=== PATIENT | female | born 1965 | race Caucasian/White ===

== ENCOUNTER 2018-11-05 14:22 | Emergency (ER) | payer MEDICARE, MEDICAID ==
[2018-11-05 14:48] VITALS: RESP 18; TEMP 97.5
[2018-11-05 16:30] VITALS: BP 122/83; PULSE 82; O2SAT 98
== END 2018-11-05 15:18 | disposition home or self-care (01) | DRG 392 ==
LOC: ED 14:22
DX: K59.00 Constipation, unspecified (principal); E03.9 Hypothyroidism, unspecified
CPT/HCPCS: 74019; 99282; 99283

== ENCOUNTER 2018-11-19 13:28 | Emergency (ER) | payer MEDICARE, MEDICAID ==
[2018-11-19 14:26] LABS: BASOPHILS % (AUTO) 1 % (0-3); EOSINOPHILS % (AUTO) 1 % (0-9); HEMATOCRIT 34 % (35-47); HEMOGLOBIN 10.7 gm/dl (12.0-15.5); LYMPHOCYTES % (AUTO) 23.1 % (10-50); MEAN CORPUSCULAR HEMOGLOBIN 29.8 pg (27.0-32.0); MEAN CORPUSCULAR HGB CONC 31.5 gm/dl (32.0-36.0); MEAN CORPUSCULAR VOLUME 95 fL (81-99); MONOCYTES % (AUTO) 13.2 % (0-12); NEUTROPHILS % (AUTO) 61.6 % (37-80)
[2018-11-19 14:43] LABS: ALBUMIN 2.8 gm/dl (3.4-5.0); ALKALINE PHOSPHATASE 57 IU/L (46-116); ALT 51 IU/L (14-63); AST 32 IU/L (15-37); BILIRUBIN,TOTAL 0.2 mg/dl (0.2-1.0); BLOOD UREA NITROGEN 11 mg/dl (7-18); CALCIUM 8.2 mg/dl (8.5-10.1); CARBON DIOXIDE 37.9 mEq/L (21-32); CHLORIDE 86 mMol/L (98-107); GLUCOSE 111 mg/dl (74-106); POTASSIUM 4.8 mMol/L (3.5-5.1); TOTAL PROTEIN 6.7 gm/dl (6.4-8.2); TROP I < 0.017 ng/ml (0.000-0.056)
[2018-11-19 14:59] LABS: SODIUM 122 mMol/L (136-145)
[2018-11-19 15:20] LABS: ABG PH 7.37 (7.35-7.45)
[2018-11-19 15:27] LABS: APPEARANCE,URINE Clear; BILIRUBIN,URINE NEGATIVE (NEGATIVE); COLOR,URINE Yellow; GLUCOSE, URINE (UA) NEGATIVE (NEGATIVE); KETONES,URINE NEGATIVE (NEGATIVE); LEUKOCYTE ESTERASE ,URINE TRACE (NEGATIVE); NITRATE,URINE NEGATIVE (NEGATIVE); OCCULT BLOOD,URINE NEGATIVE (NEG-TRACE); PH,URINE 6.5; UROBILINOGEN,URINE 0.2 (0.2-1.0 EU)
[2018-11-19 15:44] LABS: BACTERIA 1+ (< 1+); CRYSTALS NEGATIVE (0-3 AVE/HPF); EPITHELIAL CELLS 0-3 (SQUAMOUS); RBC,URINE 0-1 (0-3AV/HPF)
[2018-11-19] MEDS ORDERED: SODIUM CHLORIDE 0.9% 1000ML 1,000 ML IV SCH (15:45)
[2018-11-19] MEDS ORDERED: ALBUTEROL/IPRATROPIUM 1 VIAL SOL INH ONE (16:00)
[2018-11-19] MEDS ORDERED: ALBUTEROL/IPRATROPIUM 1 VIAL SOL ONE (16:04)
[2018-11-19] MEDS ORDERED: ACETAMINOPHEN 500 MG 500 MG TAB PO ONE (16:16)
[2018-11-19] MEDS ORDERED: ACETAMINOPHEN 500 MG 500 MG TAB ONE (16:20)
[2018-11-19] MEDS ORDERED: ONDANSETRON HCL 4 MG/2 ML SOL IV ONE (17:17)
[2018-11-19] MEDS ORDERED: ONDANSETRON HCL 4 MG/2 ML SOL ONE (17:21)
[2018-11-19 17:53] VITALS: TEMP 97.8
[2018-11-19 21:20] VITALS: RESP 18
[2018-11-19 21:21] VITALS: O2SAT 96
[2018-11-19 21:22] VITALS: BP 108/64; PULSE 68
== END 2018-11-19 18:15 | disposition home or self-care (01) | DRG 191 ==
LOC: ED 13:28
DX: J44.9 Chronic obstructive pulmonary disease, unspecified (principal); E87.1 Hypo-osmolality and hyponatremia; R05 Cough; R06.02 Shortness of breath
CPT/HCPCS: 36415; 36600; 71046; 80053; 81001; 82803; 84484; 85025; 87088; 93005; 96365; 96374; 99283; 99285; J2405

== ENCOUNTER 2018-12-22 08:51 | Emergency (ER) | payer MEDICARE, MEDICAID ==
[2018-12-22 09:20] LABS: LACTIC ACID < 0.8 mMol/L (0.0-2.0)
[2018-12-22 09:23] LABS: ABG PH 7.06 (7.35-7.45)
[2018-12-22 09:24] LABS: ABG PCO2 > 139 mmHg (35-45); ABG PO2 77 mmHg (80-100)
[2018-12-22] MEDS ORDERED: SUCCINYLCHOLINE CHLORIDE 20 MG/ML SOL IV ONE (09:24)
[2018-12-22] MEDS ORDERED: ETOMIDATE 2 MG/ML SOL IV ONE ×3 (09:24→09:44)
[2018-12-22 09:33] LABS: HEMATOCRIT 34 % (35-47); HEMOGLOBIN 10.3 gm/dl (12.0-15.5); MEAN CORPUSCULAR HEMOGLOBIN 29.7 pg (27.0-32.0); MEAN CORPUSCULAR HGB CONC 29.8 gm/dl (32.0-36.0)
[2018-12-22 09:34] LABS: MEAN CORPUSCULAR VOLUME 100 fL (81-99)
[2018-12-22] MEDS ORDERED: ROCURONIUM BROMIDE 10 MG/ML SOL IV ONE ×2 (09:34→09:45)
[2018-12-22 09:40] LABS: ALBUMIN 3.3 gm/dl (3.4-5.0); ALKALINE PHOSPHATASE 92 IU/L (46-116); ALT 22 IU/L (14-63); AST 21 IU/L (15-37); BILIRUBIN,TOTAL 0.1 mg/dl (0.2-1.0); BLOOD UREA NITROGEN 30 mg/dl (7-18); CARBON DIOXIDE 40.6 mEq/L (21-32); CHLORIDE 95 mMol/L (98-107); CREATININE 0.76 mg/dl (0.60-1.00); GLUCOSE 180 mg/dl (74-106); SODIUM 132 mMol/L (136-145); TOTAL PROTEIN 7.5 gm/dl (6.4-8.2); TROP I < 0.017 ng/ml (0.000-0.056)
[2018-12-22 09:41] LABS: POTASSIUM 6.7 mMol/L (3.5-5.1)
[2018-12-22] MEDS ORDERED: LACTATED RINGERS 1,000 ML IV ONE (09:42)
[2018-12-22] MEDS ORDERED: SODIUM CHLORIDE 0.9% 1000ML 1,000 ML IV ONE (09:45)
[2018-12-22 09:55] LABS: NEUTROPHILS % (MANUAL) 74 % (37-80)
[2018-12-22 09:56] LABS: BAND NEUTROPHILS % (MANUAL) 2 %; BASOPHILS % (MANUAL) 0 % (0-3); EOSINOPHILS % (MANUAL) 0 % (0-9); LYMPHOCYTES % (MANUAL) 14 % (10-50); MONOCYTES % (MANUAL) 10 % (0-12); NORMAL RBCS PRESENT
[2018-12-22] MEDS ORDERED: ATROPINE 0.1 MG/ML SOL ONE (09:58)
[2018-12-22] MEDS ORDERED: ATROPINE 0.1 MG/ML SOL IV ONE (10:00)
[2018-12-22] MEDS ORDERED: CALCIUM GLUCONATE 10% 1,000 MG in SODIUM CHLORIDE 0.9% 100 ML 100 ML IV ONE (10:01)
[2018-12-22] MEDS ORDERED: CALCIUM GLUCONATE 10% 100 MG/ML SOL IV ONE (10:06)
[2018-12-22] MEDS ORDERED: ALBUTEROL/IPRATROPIUM 1 VIAL SOL INH ONE (10:15)
[2018-12-22] MEDS ORDERED: ALBUTEROL/IPRATROPIUM 1 VIAL SOL ONE (10:15)
[2018-12-22] MEDS ORDERED: DEXTROSE 50% 1 VIAL SOL IV ONE ×2 (10:19)
[2018-12-22] MEDS ORDERED: INSULIN HUMAN REGULAR 100 U/ML SOL IV ONE (10:19)
[2018-12-22] MEDS ORDERED: INSULIN HUMAN REGULAR 100 U/ML SOL ONE (10:20)
[2018-12-22 10:27] VITALS: RESP 16
[2018-12-22 10:43] VITALS: PULSE 48; O2SAT 96
[2018-12-22] MEDS ORDERED: SODIUM CHLORIDE 0.9% FLUSH 10 ML SOL IV PRN (10:46)
[2018-12-22 10:51] LABS: APPEARANCE,URINE Clear; BILIRUBIN,URINE NEGATIVE (NEGATIVE); COLOR,URINE Yellow; GLUCOSE, URINE (UA) NEGATIVE (NEGATIVE); KETONES,URINE NEGATIVE (NEGATIVE); LEUKOCYTE ESTERASE ,URINE NEGATIVE (NEGATIVE); NITRATE,URINE NEGATIVE (NEGATIVE); OCCULT BLOOD,URINE NEGATIVE (NEG-TRACE); UROBILINOGEN,URINE 0.2 (0.2-1.0 EU)
[2018-12-22 10:52] LABS: BACTERIA 1+ (< 1+); CRYSTALS NEGATIVE (0-3 AVE/HPF); RBC,URINE 0-2 (0-3AV/HPF); WBC,URINE 0-2 (0-5AV/HPF)
[2018-12-22 13:59] VITALS: TEMP 89.1
[2018-12-22 14:12] VITALS: BP 116/85
== END 2018-12-22 10:34 | disposition short-term general hospital (02) | DRG 948 ==
LOC: ED 08:51
DX: R41.82 Altered mental status, unspecified (principal); R06.2 Wheezing; R29.730 NIHSS score 30; R40.2322 Coma scale, best motor response, extension, at arrival to emergency department; R40.2112 Coma scale, eyes open, never, at arrival to emergency department; R40.2212 Coma scale, best verbal response, none, at arrival to emergency department
CPT/HCPCS: 36600; 71045; 80053; 81001; 82803; 84484; 85007; 85027; 93005; 96365; 96374; 96375; 99291; 99292; J0330; J0461; J0610; J1815; A9270-GY; J3490